=== PATIENT | female | born 1985 | race Caucasian/White ===

== ENCOUNTER 2017-06-26 07:46 | Inpatient (IN) | payer OTHER ==
[~2017-06-26] VITALS: Ht 157.5 cm; Wt 79.8 kg
[~2017-06-26 07:46] MED LIST: Hydrocodone/Acetaminophen PO; NOMED; prenatal ORAL
[2017-06-26] MEDS ORDERED: Lactated Ringer's 1,000 ML IV PRN (09:19)
[2017-06-26] MEDS ORDERED: Methylergonovine 0.2 mg/mL Inj IM PRN ×2 (09:20→16:05)
[2017-06-26] MEDS ORDERED: Penicillin G K Inj 5,000,000 UNITS in Dextrose 5% Minibag Plus 100 ML IV ONE (09:20)
[2017-06-26] MEDS ORDERED: Oxytocin 10 Unit/mL Inj IM PRN ×2 (09:20→16:05)
[2017-06-26] MEDS ORDERED: Hemorrhage Kit, Post Partum XX ONE ×2 (09:20→16:05)
[2017-06-26] MEDS ORDERED: Oxytocin 30 Units/500 mL LR 30 UNITS in IV Premix 1 EACH IV PRN ×2 (09:20→16:05)
[2017-06-26] MEDS ORDERED: Carboprost 250 mCg/mL Inj IM PRN ×2 (09:20→16:05)
[2017-06-26] MEDS ORDERED: Sodium Chloride LOK Flush 10 mL Syringe IVFLUSH PRN (09:20)
[2017-06-26] MEDS ORDERED: fentaNYL-PF 50 mCg/mL 2 mL Inj IVPUSH PRN ×2 (09:20→11:30)
[2017-06-26 10:40] LABS: Mean Corpuscular Hemoglobin 28.4 pg (27.0-35.0); Mean Corpuscular Volume 85.3 fL (81-100)
[2017-06-26] MEDS ORDERED: Lactated Ringer's 500 ML IV ONE (11:30)
[2017-06-26] MEDS ORDERED: Ondansetron 2 mg/mL 2 mL Inj IVPUSH PRN (11:30)
[2017-06-26] MEDS ORDERED: fentaNYL 2 mCg/mL-Bupiv 0.125% 100 ML EPIDURAL SCH (11:30)
[2017-06-26] MEDS: Lactated Ringer's 1,000 ML IV SCH ×3 (11:30→19:30)
[2017-06-26] MEDS ORDERED: Atropine 1 mg/10 mL (Code) Syringe IVPUSH PRN (11:30)
[2017-06-26] MEDS ORDERED: EPHEDrine Sulfate 50 mg/mL Inj IVPUSH PRN (11:30)
--- NOTE | 2017-06-26 13:42 | PCM.HPANE ---
Patient Data Date of Service: Jun 26, 2017 Surgeon Admitting Provider:Aram Goldberg MD Attending Provider:Aram Goldberg MD Primary Care Physician:Aram Goldberg MD Other Provider:Anamika Segura Anesthesia Reason for Visit Term Labor TERM LABOR Ht/WT & BMI Body Mass Index Allergies Coded Allergies: No Known Allergies (Unverified , 08/16/10) Past Anesthesia History Anesthesia History: Denies:: Anesthesia Reactions, Fam Anesthesia Reaction Medications Hypertension Medication: No Home Meds Incl Beta Bud: No Active Scripts [Hydrocodone/Acetaminophen] ([place] 5-325)1 TAB TABLET No Conflict Check1-2 Tab PO Q4H PRN For Pain Prov:Aram Goldberg MD 09/07/14 Reported Medications [] No Conflict Check Oral Daily 09/05/14 No Historical Medication Ea 08/16/10 History History of ENT Problems?: No HEENT History: Denies:: Abnormal Airway Hearing Problem Denture Type: None Teeth Condition: Within Normal Limits Hx of Heart Problems?: No Cardiovascular History: Denies:: Hypertension Irregular Heartbeat Hx of Respiratory Problem?: No Respiratory History: Denies:: Asthma Hx Neurologic Problems?: No Hx of GI Problems?: No Hx of Problems?: No Female Hx: Positive for:: Currently Hx Musculoskeletal Problems?: No Hx of Psycho/Social Problems?: No Hx Surgeries?: No Smoking Status: Never Smoker Stop/Bang Risk Assessment Category Category 1A: Patient has history of documented sleep apnea, and HAS NOT received any narcotic, sedative or anesthesia administration during this stay. Category 1B: Patient has history of documented sleep apnea, and HAS received any narcotic , sedative or anesthesia administration during this stay Category 2: Patient has SUSPECTED Obstructive Sleep Apnea, and HAS received any narcotic , sedative or anesthesia administration during this stay. Category 3: Patient has SUSPECTED Obstructive Sleep Apnea and HAS NOT received narcotic, sedative or anesthesia administration during this stay. Category 4: Outpatient in Procedural Areas with known sleep apnea or who screen positive for High Risk via the STOP/BANG questionnaire. Exam Exam General Appearance: Alert, Oriented X3, Cooperative, Mild Distress HEENT/AIRWAY: MP 2 Lungs: Clear to Auscultation, Normal Air Movement Heart: Exam Unremarkable, Regular Rate/Rhythm, No Murmurs/Rubs/Gallops Meds/Labs/Diagnostics Admission Meds Current Medications Penicillin G Potassium/ Dextrose/Water (Pfizerpen Inj/ D5W Minibag Plus) 100 ml @ 240 mls/hr ONCE ONCE IV Last administered on 06/26/17t 10:54; Start at 09:20; Stop 06/26/17 at 09:44; Status DC Labs Test 06/26/17 10:30 White Blood Count 11.1th/mm3 (3.8-10.1) Red Blood Count 4.76mil/mm3 (3.90-5.20) Hemoglobin 13.5g/dL (12.0-15.6) Hematocrit 40.6% (35.0-46.0) Mean Corpuscular Volume 85.3fL (81-100) Mean Corpuscular Hemoglobin 28.4pg (27.0-35.0) Mean Corpuscular Hemoglobin Concent 33.3% (32.0-37.0) Red Cell Distribution Width 14.5% (12.3-15.4) Platelet Count 154bil/L (150-400) Plan Impression Patient chart reviewed, patient interviewed and anesthestic plan with risks, benefits, and alternatives discussed, and informed consent obtained. NPO per Anesth. Guidelines: Yes ASA Physical Status: ASA2 Mod Systemic Disease Anesthetic Plan: Epidural Bene/Risks/Altern/Consents: Yes HP Complete Prior to Induction: Yes Mario Alberto López MD Jun 26, 2017 11:36
--- NOTE | 2017-06-26 16:02 | PCM.OBVAG ---
Vaginal Delivery Date of Service Jun 26, 2017 Pre Operative Diagnosis Pre Operative Diagnosis Term with GBS+ status and hx of precipitous delievery Post Operative Diagnosis Post Operative Diagnosis with retained placenta removed by manual extraction Procedure Obstetical Procedure: Normal Spontaneous Vaginal Delivery, Manual Extraction of Placenta Indication for Procedure Induction: Active labor, Progressed normally through labor Findings Obstetrical Findings: [place] (Female), Cord (3 Vessel), Presentation (ADELAIDE), Placenta (Intact/Normal), Perineal Laceration (None) Analgesia/Medications Obstetrical Anesthesia: Epidural Blood Loss & Administration Estimated Blood Loss: 300 Post Procedure Plan Post delivery Condition: Mom stable, Baby stable to nursery Aram Goldberg MD Jun 26, 2017 16:02
[2017-06-26] MEDS ORDERED: Benzocaine (Dermoplast) 20% 60 Gm Spray TOPICAL PRN (16:05)
[2017-06-26] MEDS ORDERED: LANOlin HPA 7 Gm Ointment TOPICAL PRN (16:05)
[2017-06-26] MEDS ORDERED: Witch Hazel-Glycerin Pads TOPICAL PRN (16:05)
[2017-06-26] MEDS ORDERED: HYDROcodone-APAP 5-325 mg Tablet PO PRN (16:05)
[2017-06-26] MEDS ORDERED: Penicillin G K Inj 3,000,000 UNITS in IV Premix 1 EACH IV SCH (16:30)
[2017-06-26] MEDS: Sodium Chloride LOK Flush 10 mL Syringe IVFLUSH SCH (18:30)
--- NOTE | 2017-06-26 22:55 | PCM.ANEP1 ---
Post Anesthesia PACU Phase 1 Assessment Date of Service: Jun 26, 2017 Anesthetic Administered: Epidural Level of Alertness: Awake, talking LESLIE's with Equal Strength: Yes Pain: Yes Pain Scale Score: 4 Nausea or Vomiting: No CV Function & Hydration Stable: Yes Airway Device: Oxygen Delivery: Room Air Lungs: Clear to Auscultation, Normal Air Movement Dermatome Level: Full Sensation Summary Satisfactory epidural PACU Phase 2 Assessment Complications: No Follow up Care: N/A Patient Instructions Provided: N/A Mario Alberto López MD Jun 26, 2017 22:55
[2017-06-27] MEDS: Lactated Ringer's 1,000 ML IV SCH ×3 (00:02→08:02)
[2017-06-27] MEDS: Sodium Chloride LOK Flush 10 mL Syringe IVFLUSH SCH ×2 (00:30→08:30)
[2017-06-27 06:49] LABS: Mean Corpuscular Hemoglobin 28.5 pg (27.0-35.0); Mean Corpuscular Volume 86.9 fL (81-100)
--- NOTE | 2017-06-27 13:41 | PCM.DC.OB ---
Obstetrical Discharge Summary Date of Service Jun 27, 2017 Date of hospital admission Jun 26, 2017 at 09:04 Date of Discharge: Jun 27, 2017 Providers Admitting Physician: Prateek Khoury MD Primary Care Physician: Prateek Khoury MD Attending Physician: Prateek Khoury MD Problems: (1) Qualifiers: Weeks of gestation: 40 weeks Qualified Code: Z3A.40 - 40 weeks gestation of Status: Acute ICD Code: Z33.1 Invasive procedures , manual extraction of the placenta Date of Procedure: Jun 26, 2017 Brief History and Physical: at 40w with labor and hx of precipitous delivery admitted for GBS prophylasxis and contractions. uncomplicated, Medical Hx Uncomplicated. Hospital Course: Delievered Baby Girl, avulsion of cord and manual extraction of placenta. Since delievery, decreasing lochia, minimal cramping. No complaints. ([]) ORAL DAILY (Reported) ([Hydrocodone/Acetaminophen]) 1 TAB TABLET 1-2 TAB PO Q4H PRN PRN For Pain Prescribed by: PRATEEK KHOURY MD No Historical Medication (No Historical Medication) Ea (Reported) Discharge Diet: No restrictions Discharge Activity-General: Pelvic Rest, Be up and about, Balance rest and activity, Activity as pain allows, Activity as energy allows Prateek Khoury MD Jun 27, 2017 13:41
--- NOTE | 2017-06-27 13:43 | PCM.DIOB ---
Obstetrical Disch Instruction Dates of Hospitalization Date of Hospital Admission Jun 26, 2017 at 09:04 Providers Admitting Physician: Aram Goldberg MD Primary Care Physician: Aram Goldberg MD Attending Physician: Aram Goldberg MD Discharge Diagnosis Discharge Diagnosis Problems: (1) Qualifiers: Weeks of gestation: 40 weeks Qualified Code: Z3A.40 - 40 weeks gestation of Status: Resolved ICD Code: Z33.1 Diet Discharge Diet: No restrictions Activity Discharge Activity-General: Try not to overdue, Be up and about, Balance rest and activity, Activity as pain allows, Activity as energy allows Dressing and Incisional Care Hygiene: May shower Follow Up Plan Follow-up appointment: Weeks (6) Call your provider for: Fever or Chills, Shortness of breath, Heavy vaginal bleeding, Heavy bleeding, Epigastric pain, Excessive constipation, Vaginal discomfort, Red painful breasts Aram Goldberg MD Jun 27, 2017 13:43
[2017-06-27 15:52] VITALS: BP 109/79; PULSE 68; RESP 18
== END 2017-06-27 16:54 | disposition home or self-care (01) | DRG 774 ==
LOC: FBCO 07:46 → FBC 09:04
PROVIDERS: ADMIT Family Medicine; ATTEND Family Medicine
PROC: 10E0XZZ Delivery of Products of Conception, External Approach (ICD-10-PCS; principal; 2017-06-26)
DX: O73.1 Retained portions of placenta and membranes, without hemorrhage (principal); O69.81X0 Labor and delivery complicated by cord around neck, without compression, not applicable or unspecified; Z37.0 Single live birth; O99.824 Streptococcus B carrier state complicating childbirth; Z3A.40 40 weeks gestation of pregnancy